=== PATIENT | male | born 1955 | race Caucasian/White ===

== ENCOUNTER → 2017-09-30 | Outpatient (CLI) | payer OTHER ==
--- NOTE | 2017-09-30 15:00 | XR ---
EXAMINATION TYPE: XR knee complete bilateral DATE OF EXAM: 09/30/2017 CLINICAL HISTORY: pain TECHNIQUE: Three views of the bilateral knees are obtained. COMPARISON: None. FINDINGS: There is no acute fracture/dislocation. The tri-compartment joint spaces appear severely narrowed on the left and moderately narrowed on the right. Moderate patellofemoral joint space narrow ing left greater than right. The overlying soft tissue appears unremarkable. IMPRESSION: There is no acute fracture or dislocation.ICD 10 NO FRACTURE, INITIAL EVALUATION
== END | disposition home or self-care (01) ==
LOC: RADXRMAIN 14:23
PROVIDERS: ATTEND Internal Medicine
DX: M25.569 Pain in unspecified knee (principal)

== ENCOUNTER → 2017-10-04 | Outpatient (CLI) | payer OTHER ==
[2017-10-04 10:31] LABS: Basophils # (A) 0.1 k/uL (0-0.2); Basophils % (A) 1 %; Eosinophils # (A) 0.3 k/uL (0-0.7); Eosinophils % (A) 5 %; HCT 48.2 % (39.0-53.0); HGB 15.3 gm/dL (13.0-17.5); Lymphocytes # (A) 2.1 k/uL (1.0-4.8); Lymphocytes % (A) 34 %; MCH 28.2 pg (25.0-35.0); MCHC 31.8 g/dL (31.0-37.0); MCV 88.5 fL (80.0-100.0); Mean Platelet Volume 6.8; Monocytes # (A) 0.5 k/uL (0-1.0); Monocytes % (A) 8 %; Neutrophils % (A) 48 %; Platelet Count 277 k/uL (150-450); RBC 5.45 m/uL (4.30-5.90); RDW 13.6 % (11.5-15.5); WBC 6.3 k/uL (3.8-10.6)
[2017-10-04 10:55] LABS: ALT 37 U/L (21-72); AST 26 U/L (17-59); Albumin 4.5 g/dL (3.5-5.0); Alkaline Phosphatase 63 U/L (38-126); Anion Gap 9 mmol/L; Blood Urea Nitrogen 20 mg/dL (9-20); Calcium 10.2 mg/dL (8.4-10.2); Carbon Dioxide 28 mmol/L (22-30); Chloride 103 mmol/L (98-107); Cholesterol 315 mg/dL (<200); Glucose 94 mg/dL (74-99); HDL Cholesterol 52 mg/dL (40-60); LDL Cholesterol,Calculated 220 mg/dL (0-99); Potassium 5.1 mmol/L (3.5-5.1); Sodium 140 mmol/L (137-145); Total Bilirubin 0.7 mg/dL (0.2-1.3); Total Protein 7.5 g/dL (6.3-8.2); Triglycerides 214 mg/dL (<150)
[2017-10-04 11:11] LABS: Appearance,Urine Clear (Clear); Bilirubin,Urine Negative (Negative); Blood,Urine Small (Negative); Color,Urine Yellow; Glucose,Urine (UA) Negative (Negative); Ketones,Urine Negative (Negative); Leukocyte Esterase,Urine Negative (Negative); Mucus,Urine Rare /hpf; Nitrite,Urine Negative (Negative); PH, Urine 5.5 (5.0-8.0); Protein,Urine Negative (Negative); RBC,Urine 3 /hpf (0-5); Specific Gravity,Urine 1.013 (1.001-1.035); Urobilinogen,Urine <2.0 mg/dL (<2.0); WBC,Urine <1 /hpf (0-5)
[2017-10-04 11:25] LABS: Prostate Specific Antigen 0.82 ng/mL (0.00-4.00)
== END | disposition home or self-care (01) ==
LOC: LABWHC1 09:47
PROVIDERS: ATTEND Internal Medicine
DX: E78.5 Hyperlipidemia, unspecified (principal); I10 Essential (primary) hypertension; E55.9 Vitamin D deficiency, unspecified; Z12.5 Encounter for screening for malignant neoplasm of prostate
CPT/HCPCS: 36415; 80053; 80061; 81001; 82306; 84153; 85025

== ENCOUNTER → 2017-11-19 | Outpatient (CLI) | payer OTHER ==
--- NOTE | 2017-11-19 15:03 | MR ---
EXAMINATION TYPE: MR knee LT wo con DATE OF EXAM: 11/19/2017 COMPARISON: NONE HISTORY: Left knee pain TECHNIQUE: Multiplanar, multisequence imaging of the left knee is performed without IV contrast. FINDINGS: MEDIAL MENISCUS: Medial meniscus appears small. In the coronal plane there is some increased signal a long the posterior horn medial meniscus. LATERAL MENISCUS: There is minimal increased signal along the inferior anterior lateral meniscus. Thi s does not communicate with the articular surface but can be compatible some internal derangement. Th e anterior horn of the lateral meniscus is intact. CRUCIATE LIGAMENTS: The anterior and posterior cruciate ligaments are intact and unremarkable. COLLATERAL LIGAMENTS: The medial collateral ligament and lateral collateral ligament complex are inta ct and unremarkable. EXTENSOR MECHANISM: Distal quadriceps tendon appears intact. There is some increased signal near the insertion on the tibia. Strain could be considered. EFFUSION: There is a moderate joint effusion. POPLITEAL CYST: There is a popliteal cyst measuring 3.9 x 1.9 cm. TRICOMPARTMENT SPACES: There is narrowing of medial and lateral compartment joint spaces. CARTILAGE: There is thinning of the articular cartilage greater in the medial compartment BONE MARROW SIGNAL: Small osteochondral defect appears to be along the posterior medial femoral condy le. Contusion surrounds the site. Small contusion is also present anterior medial tibial plateau. OTHER: No additional significant abnormality is appreciated. IMPRESSION: 1. Internal derangement posterior horn lateral meniscus. 2. Degenerative changes with a small medial meniscus. 3. Suspected osteochondral defect posterior medial femoral condyle. 4. Contusion of the medial femoral condyle and anterior medial tibial plateau. #5 osteoarthritic dege nerative change. 5. Some strain of the patellar insertion 6. Moderate joint effusion 7. Popliteal cyst
== END | disposition home or self-care (01) ==
LOC: RADMRIMAIN 10:38
PROVIDERS: ATTEND Orthopaedic Surgery
DX: M23.352 Other meniscus derangements, posterior horn of lateral meniscus, left knee (principal); M17.12 Unilateral primary osteoarthritis, left knee; S80.02XA Contusion of left knee, initial encounter; M71.22 Synovial cyst of popliteal space [Baker], left knee

== ENCOUNTER → 2022-09-19 | Outpatient (CLI) | payer OTHER ==
--- NOTE | 2022-09-19 09:38 | XR ---
EXAMINATION TYPE: XR chest 2V DATE OF EXAM: 09/19/2022 9:25 AM COMPARISON: Chest radiographs from 11/07/2012 TECHNIQUE: XR chest 2V Frontal and lateral views of the chest. CLINICAL INDICATION:Male, 66 years old with history of J18.1 LOBAR PNEUMONIA, UNSPECIFIED ORGANISM; FINDINGS: Lungs/Pleura: There is no evidence of pleural effusion, focal consolidation, or pneumothorax. Pulmonary vascularity: Unremarkable. Heart/mediastinum: Cardiomediastinal silhouette is unremarkable. Musculoskeletal: Degenerative changes of the shoulder joints. No obvious acute fracture. IMPRESSION: No acute cardiopulmonary disease/process. No significant change from prior.
== END | disposition home or self-care (01) ==
LOC: RADXRMAIN 09:14
PROVIDERS: ATTEND Family Medicine
DX: J18.1 Lobar pneumonia, unspecified organism (principal)
CPT/HCPCS: 71046

== ENCOUNTER 2024-09-05 13:13 | Emergency (ER) | payer OTHER ==
--- NOTE | 2024-09-05 14:24 | XR ---
EXAMINATION TYPE: XR chest 2V DATE OF EXAM: 09/05/2024 1:51 PM COMPARISON: Chest radiographs from 09/19/2022 CLINICAL INDICATION: Male, 68 years old with history of Left Rib pain; [facility] TECHNIQUE: XR chest 2V Frontal and lateral views of the chest. FINDINGS: Lungs/Pleura: There is no evidence of pleural effusion, focal consolidation, or pneumothorax. Pulmonary vascularity: Unremarkable. Heart/mediastinum: Cardiomediastinal silhouette is unremarkable. Musculoskeletal: No acute osseous pathology. No rib fractures definitively visualized. IMPRESSION: 1. No acute cardiopulmonary disease process. 2. COPD changes. [facility], , 09/05/2024 2:22 PM
--- NOTE | 2024-09-05 15:35 | ED ---
Extremity Problem HPI - General Source: patient, RN notes reviewed Mode of arrival: ambulatory Limitations: no limitations - History of Present Illness Onset/Timin -: days(s) <Dano Knutson - Last Filed: 09/05/24 15:32> <Santiago Staley - Last Filed: 09/07/24 01:46> - General Chief complaint: Extremity Problem,Nontraumatic Stated complaint: L sided abd pain Time Seen by Provider: 09/05/24 13:27 - History of Present Illness Initial comments: Quick note: This is a 68-year-old male presenting with left rib pain after sneezing last night. Patient states it feels like a rib is out of place after a sneeze with worsening pain today. Endorses reproducible pain with palpation over anterior rib that worsens with inhalation. Denies dyspnea/SOB, mid/left chest pain, radiating pain, sweating, pallor. (Dano Knutson) 68-year-old male presenting with chief complaint of left-sided rib pain. Patient states last night he sneezed and afterwards was starting to have some left-sided pain. He states that it feels like "a rib is out of place". Pain is reproducible with pressure and with certain movements. Worse with deep breaths. He denies shortness of breath. He had a recent mild cough. No other injury or trauma. No dizziness or weakness. No pain to the center or right side of the chest (Santiago Staley) - Related Data Home Medications Medication Instructions Recorded Confirmed FLUoxetine HCL [PROzac] 20 mg PO DAILY 03/05/14 03/05/14 Multivitamin [Men's Multi-Vitamin] 1 each PO 03/05/14 03/05/14 Reading-3 Fatty Acids [Reading-3] 1,000 mg PO 03/05/14 03/05/14 Ubidecarenone [Coq-10] 100 mg PO 03/05/14 03/05/14 amLODIPine BESYLATE [Norvasc] 2.5 mg PO DAILY 03/05/14 03/05/14 Previous Rx's Medication Instructions Recorded Hydrocortisone Suppository 25 mg RECTAL BID #14 supp 03/05/14 [Anusol-HC Suppository] methylPREDNISolone Dose Pack 4 mg PO DIRECTED #1 packet 09/05/24 [Medrol Dose Pack] Allergies Allergy/AdvReac Type Severity Reaction Status Date / Time No Known Allergies Allergy Verified 09/05/24 13:38 Review of Systems ROS Other: All systems not noted in ROS Statement are negative. <Dano Knutson - Last Filed: 09/05/24 15:32> ROS Other: All systems not noted in ROS Statement are negative. <Santiago Staley - Last Filed: 09/07/24 01:46> ROS Statement: Those systems with pertinent positive or pertinent negative responses have been documented in the HPI. Past Medical History Past Medical History: Asthma, Hypertension Additional Past Medical History / Comment(s): diverticulitis History of Any Multi-Drug Resistant Organisms: None Reported Past Surgical History: Hernia Repair Past Psychological History: Anxiety Smoking Status: Former smoker Past Alcohol Use History: Rare Past Drug Use History: None Reported <Dano Knutson - Last Filed: 09/05/24 15:32> General Exam Limitations: no limitations <Dano Knutson - Last Filed: 09/05/24 15:32> General appearance: alert, in no apparent distress Head exam: Present: atraumatic, normocephalic, normal inspection Eye exam: Present: normal appearance, EOMI Neck exam: Present: normal inspection. Absent: meningismus Respiratory exam: Present: normal lung sounds bilaterally, chest wall tenderness. Absent: respiratory distress, wheezes, rales, rhonchi, stridor Cardiovascular Exam: Present: regular rate, normal rhythm, normal heart sounds. Absent: systolic murmur, diastolic murmur, rubs, gallop, clicks Neurological exam: Present: alert, oriented X3 Psychiatric exam: Present: normal affect, normal mood Skin exam: Present: warm, dry <Santiago Staley - Last Filed: 09/07/24 01:46> - General Exam Comments Initial Comments: Visual Physical Exam Vital signs reviewed General: Well-appearing, nontoxic, no acute distress. Head: Normocephalic, atraumatic Eyes: PERRLA, EOMI ENT: Airway patent Chest: Nonlabored breathing Skin: No visual rash, normal skin tone Neuro: Alert and oriented 3 Musculoskeletal: Point tenderness of left inferior, anterior rib without obvious crepitus or tenting (Dano Knutson) Course Vital Signs 09/05/24 09/05/24 13:35 17:39 Temperature 99.1 F 98.6 F Pulse Rate 82 73 Respiratory 18 19 Rate Blood Pressure 189/102 136/86 O2 Sat by Pulse 95 97 Oximetry Medical Decision Making <Dano Knutson - Last Filed: 09/05/24 15:32> <Santiago Staley - Last Filed: 09/07/24 01:46> - Medical Decision Making I completed the quick note portion of this chart signed YAHAIRA Mazariegos (Dano Knutson) Was pt. sent in by a medical professional or institution (YENIFER Baig, [employer], urgent care, hospital, or fci...) When possible be specific @ -No Did you speak to anyone other than the patient for history (EMS, parent, family, police, friend...)? What history was obtained from this source @ -No Did you review nursing and triage notes (agree or disagree)? Why? @ -I reviewed and agree with nursing and triage notes Were old charts reviewed (outside hosp., previous admission, EMS record, old EKG, old radiological studies, urgent care reports/EKG's, fci records)? Report findings @ -No old charts were reviewed Differential Diagnosis (chest pain, altered mental status, abdominal pain women, abdominal pain men, vaginal bleeding, weakness, fever, dyspnea, syncope, headache, dizziness, GI bleed, back pain, seizure, CVA, palpatations, mental health, musculoskeletal)? @ -Differential includes rib fracture, contusion, pneumothorax, this is not an all-inclusive list EKG interpreted by me (3pts min.). @ -As above X-rays interpreted by me (1pt min.). @ -No acute process seen on rib or chest x-ray CT interpreted by me (1pt min.). @ -None done U/S interpreted by me (1pt. min.). @ -None done What testing was considered but not performed or refused? (CT, X-rays, U/S, labs)? Why? @ -None What meds were considered but not given or refused? Why? @ -None Did you discuss the management of the patient with other professionals (professionals i.e. YENIFER Baig, [employer], lab, RT, psych nurse, social work coordinator, special forces communications sergeant, teacher, restoration officer, mattress spring encaser)? Give summary @ -No Was smoking cessation discussed for >3mins.? @ -No Was critical care preformed (if so, how long)? @ -No Were there social determinants of health that impacted care today? How? (Homelessness, low income, unemployed, alcoholism, drug addiction, transportation, low edu. Level, literacy, decrease access to med. care, fpc, rehab)? @ -No Was there de-escalation of care discussed even if they declined (Discuss DNR or withdrawal of care, Hospice)? DNR status @ -No What co-morbidities impacted this encounter? (DM, HTN, Smoking, COPD, CAD, Cancer, CVA, ARF, Chemo, Hep., AIDS, mental health diagnosis, sleep apnea, morbid obesity)? @ -None Was patient admitted / discharged? Hospital course, mention meds given and route, prescriptions, significant lab abnormalities, going to OR and other pertinent info. @ -68-year-old male presenting with chief complaint of left-sided rib pain. This started after he sneezed yesterday. Workup is initiated by triage. No ac phyllis process seen on rib or chest x-ray. Patient is later evaluated by myself. Heart and lungs are clear to auscultation. He is having no shortness of breath. Patient is educated on today's findings and supportive management at home. Educated on the importance of deep breaths to prevent pneumonia. Provided with lidocaine and Decadron here in the ER. Follow-up with PCP. Report back to ER with any new or worsening symptoms. Discussed return parameters and answered all questions. Patient conveyed verbal understanding and agreed to the plan. I discussed this case in detail with my attending Dr. Wilburn Undiagnosed new problem with uncertain prognosis? @ -No Drug Therapy requiring intensive monitoring for toxicity (Heparin, Nitro, Insulin, Cardizem)? @ -No Were any procedures done? @ -No Diagnosis/symptom? @ -Rib pain Acute, or Chronic, or Acute on Chronic? @ -Acute Uncomplicated (without systemic symptoms) or Complicated (systemic symptoms)? @ -Uncomplicated Side effects of treatment? @ -No Exacerbation, Progression, or Severe Exacerbation? @ -No Poses a threat to life or bodily function? How? (Chest pain, [place], [place], pneumonia, PE, COPD , DKA, ARF, appy, cholecystitis, CVA, Diverticulitis, Homicidal, Suicidal, threat to staff... and all critical care pts) @ -low likelihood (Santiago Staley) Disposition <Dano Knutson - Last Filed: 09/05/24 15:32> Is patient prescribed a controlled substance at d/c from ED?: No Time of Disposition: 16:38 <Santiago Staley - Last Filed: 09/07/24 01:46> Clinical Impression: Pleurisy Disposition: HOME SELF-CARE Condition: Good Instructions (If sedation given, give patient instructions): Pleurisy (ED) Additional Instructions: Follow up with PCP. report back to ER with any new or worsening symptoms Prescriptions: methylPREDNISolone Dose Pack [Medrol Dose Pack] 4 mg PO DIRECTED #1 packet Referrals: Cristian Watt DO [Primary Care Provider] - 1-2 days
--- NOTE | 2024-09-05 16:10 | XR ---
EXAMINATION TYPE: XR ribs LT DATE OF EXAM: 09/05/2024 3:57 PM COMPARISON: 08/28/2024 CLINICAL INDICATION: Male, 68 years old with history of Left anterior rib pain after sneezing; [facility] TECHNIQUE: XR ribs LT; Frontal and oblique views of the ribs with frontal chest radiograph. FINDINGS: The ribs have a normal appearance. No evidence of fracture. Overall, the lungs are clear. The cardiac silhouette is normal in size. The remaining osseous structures are intact. IMPRESSION: No acute osseous pathology. [facility], , 09/05/2024 4:07 PM
[2024-09-05 17:44] VITALS: BP 136/86; PULSE 73; RESP 19; TEMP 98.6
[2024-09-05] MEDS: DEXAMETHASONE SOD PHOSPHATE 10 MG/ML 1 ML VIAL IM STA (17:45)
[2024-09-05] MEDS: LIDOCAINE 4% PATCH TOPICAL ONE (17:49)
== END 2024-09-05 17:54 | disposition home or self-care (01) ==
LOC: EC 13:13
DX: R09.1 Pleurisy (principal); Z87.891 Personal history of nicotine dependence
CPT/HCPCS: 99284; 71100; 71046; 96372; J1100

== ENCOUNTER → 2024-09-21 | Outpatient (CLI) | payer OTHER ==
--- NOTE | 2024-09-21 17:29 | XR ---
EXAMINATION TYPE: XR foot complete RT DATE OF EXAM: 09/21/2024 5:20 PM COMPARISON: None CLINICAL INDICATION: Male, 68 years old with history of M679.674; PH[facility], pain TECHNIQUE: XR foot complete RT examined in the AP, oblique, and lateral projections. FINDINGS: No evidence of any acute osseous pathology. Calcaneal plantar spurring is present. Multifocal degener ation changes throughout the joints of the foot with osteophyte formation and joint space narrowing. IMPRESSION: 1. No evidence of acute fracture. 2. Multifocal degeneration changes throughout the joints of the foot. [facility], , 09/21/2024 5:26 PM
== END | disposition home or self-care (01) ==
LOC: RADXRMAIN 17:02
PROVIDERS: ATTEND Family Medicine
DX: M19.071 Primary osteoarthritis, right ankle and foot (principal)

== ENCOUNTER → 2024-09-22 | Outpatient (CLI) | payer OTHER ==
[2024-09-22 20:38] LABS: Basophils # (A) 0.05 X 10*3/uL (0.00-0.10); Basophils % (A) 0.6 %; Eosinophils % (A) 2.4 %; HCT 44.1 % (39.6-50.0); Lymphocytes # (A) 2.09 X 10*3/uL (0.90-5.00); Lymphocytes % (A) 25.6 %; MCH 27.9 pg (27.0-32.0); MCHC 31.7 g/dL (32.0-37.0); Mean Platelet Volume 10.3 FL (9.5-12.2); Monocytes # (A) 0.72 X 10*3/uL (0.20-1.00); Monocytes % (A) 8.8 %; NRBC Per 100 WBC 0 X 10*3/uL (0.00-0.01); Neutrophils # (A) 5.09 X 10*3/uL (1.80-7.70); Neutrophils % (A) 62.4 %; Platelet Count 288 X 10*3/uL (140-440); RBC 5.01 X 10*6/uL (4.40-5.60); WBC 8.17 X 10*3/uL (4.50-10.00)
[2024-09-22 20:39] LABS: ALT 24 U/L (10-49); AST 21 U/L (14-35); Albumin 4.2 g/dL (3.8-4.9); Albumin/Globulin Ratio 1.56 Ratio (1.60-3.17); Alkaline Phosphatase 80 U/L (41-126); BUN/Creat Ratio 18.67 Ratio (12.00-20.00); Blood Urea Nitrogen 16.8 mg/dL (9.0-27.0); Carbon Dioxide 28.4 mmol/L (21.6-31.8); Chloride 98 mmol/L (96-109); Chol/HDL Ratio 5.19 Ratio; Globulin 2.7 g/dL (1.6-3.3); Glucose 109 mg/dL (70-110); LDL Cholesterol,Calculated 157.6 mg/dL (0.0-131.0); Potassium 4.7 mmol/L (3.5-5.5); Sodium 138 mmol/L (135-145); Total Bilirubin 0.6 mg/dL (0.3-1.2); Total Protein 6.9 g/dL (6.2-8.2); Uric Acid 6.4 mg/dL (3.7-8.7)
[2024-09-22 20:40] LABS: Prostate Specific Antigen 1.07 ng/mL (0.000-4.500)
[2024-09-22 20:42] LABS: Appearance,Urine Clear (Clear); Bilirubin,Urine Negative (Negative); Blood,Urine Negative (Negative); Color,Urine Yellow (Yellow); Ketones,Urine Negative (Negative); Nitrite,Urine Negative (Negative); Specific Gravity,Urine 1.003 (1.001-1.030); Urobilinogen,Urine 0.2 E.U./DL
== END | disposition home or self-care (01) ==
LOC: LABWHC1 11:13
PROVIDERS: ATTEND Family Medicine
DX: Z00.01 Encounter for general adult medical examination with abnormal findings (principal); I10 Essential (primary) hypertension; E66.01 Morbid (severe) obesity due to excess calories; N40.0 Benign prostatic hyperplasia without lower urinary tract symptoms; M79.674 Pain in right toe(s)
CPT/HCPCS: 36415; 80053; 80061; 81003; 82306; 82607; 83036; 84153; 84443; 84550; 85025

== ENCOUNTER → 2024-12-07 | Outpatient (CLI) | payer OTHER ==
[2024-12-07 15:12] LABS: ALT 27 U/L (10-49); AST 27 U/L (14-35); Creatine Kinase 192 U/L (35-257)
== END | disposition home or self-care (01) ==
LOC: LABWHC1 10:35
PROVIDERS: ATTEND Family Medicine
DX: E11.9 Type 2 diabetes mellitus without complications (principal); E78.5 Hyperlipidemia, unspecified
CPT/HCPCS: 36415; 80061; 82550; 83036; 84450; 84460